=== PATIENT | male | born 1955 | race Caucasian/White ===

== ENCOUNTER 2023-09-03 13:33 | Emergency (ER) | payer MEDICARE, MEDICAID, SELFPAY ==
[2023-09-03 13:55] VITALS: BP 177/74; PULSE 92; RESP 16; TEMP 37; O2SAT 96; BMI 28.7
--- NOTE | 2023-09-03 14:15 | ED_ITS ---
HPI - Recheck/Abnormal Lab/Rx <Miguelina Diaz PA-C - Last Filed: 09/03/23 14:39> General Chief Complaint: Recheck/Abnormal Lab/Rx Stated Complaint: per pt bacterial infection, finger swelling Time Seen by Provider: 09/03/23 13:38 Source: patient Mode of arrival: Family Vehicle History of Present Illness HPI narrative: This is a 68-year-old male presenting with concern for wanting a recheck of his finger. Patient states about 8 days ago he sustained a burn when he was cooking to the top of his right hand and index finger. He states that there was redness and there were some blisters that formed. He did not do anything initially to treat it but had quite a bit of swelling in that finger and reduced range of motion so he went to the walk-in clinic in would be 2 days ago where he was given a shot of intramuscular antibiotic and placed on Bactrim. Patient states he did not start the Bactrim until yesterday, he just took the 3rd dose this morning. He came in today for further evaluation/rechecked to make sure everything looks okay and he is concerned that it is still swollen and somewhat painful. He states that his range of motion in the swelling have gone down significantly since he had the antibiotic shot 2 days ago. Overall he says it is looking much better. He denies sustaining any other injury to this hand or fingers recently including puncture wound. He has never had something like this before in his finger. He denies any fevers, chills, nausea, vomiting or any other symptoms says he has been in his usual state of health. Related Data Allergies Allergy/AdvReac Type Severity Reaction Status Date / Time No Known Drug Allergies Allergy Verified 09/03/23 14:31 Review of Systems <Miguelina Diaz PA-C - Last Filed: 09/03/23 14:39> Review of Systems Narrative: See HPI Exam <Miguelina Diaz PA-C - Last Filed: 09/03/23 14:39> Narrative Exam Narrative: GENERAL: 68 year old patient appears stated age. Well-developed patient, in mild distress. HEAD: Atraumatic. Normocephalic. EYES: Pupils equal round and reactive. Extraocular motions intact. No scleral icterus. No injection or drainage. ENT: Nose without bleeding, purulent drainage. Throat without erythema, tonsillar hypertrophy or exudate. Airway patent. NECK: Trachea midline. Non tender CARDIOVASCULAR: Regular rate and rhythm without murmurs, gallops, or rubs. RESPIRATORY: Slightly coarse. Breath sounds equal bilaterally. No wheezes, rales, or rhonchi. EXTREMITIES: The right index finger has moderate generalized swelling throughout the entire digit, there is mild erythema and mild generalized tenderness with no specific area of fluctuance or induration. There are no contractures present. Exam appears consistent with a healing possibly infected second-degree burn. No abscess or visible broken skin, there is some dried flaking skin on the dorsum of the hand at the base of the finger at the location patient states he had a blister. There is an area approximately half a cm in diameter at the patient's palmar aspect of the D IP of the affected hand index finger that is slightly pale appearing as compared to the remainder of the digits. Patient believes this was a blister spot from the burn as well. There is no streaking up the hand or into the wrist or arm. Range of motion is some what reduced 2nd to inflammation/swelling No edema or joint tenderness. Patient has no tenderness with palpation over the flexor tendons of the palm proximal to the index finger. NEURO: AOx3. SKIN: No rash or erythema of visible areas Initial Vital Signs Initial Vital Signs: Vital Signs Temperature 98.6 F 09/03/23 13:55 Pulse Rate 92 H 09/03/23 13:55 Respiratory Rate 16 09/03/23 13:55 Blood Pressure 177/74 H 09/03/23 13:55 Pulse Oximetry 96 09/03/23 13:55 Oxygen Delivery Method Room Air 09/03/23 13:55 <Ghassan Hopson DO - Last Filed: 09/03/23 14:58> Initial Vital Signs Initial Vital Signs: Vital Signs Temperature 98.6 F 09/03/23 13:55 Pulse Rate 92 H 09/03/23 13:55 Respiratory Rate 16 09/03/23 13:55 Blood Pressure 177/74 H 09/03/23 13:55 Pulse Oximetry 96 09/03/23 13:55 Oxygen Delivery Method Room Air 09/03/23 13:55 Course <Miguelina Diaz PA-C - Last Filed: 09/03/23 14:39> Orders Ordered: Discontinued Medications Ceftriaxone Sodium (Ceftriaxone 2,000 Mg Vial) 1,000 mg IM NOW ONE Stop: 09/03/23 14:15 Last Admin: 09/03/23 14:28 Dose: 1,000 mg Documented By: CHANDA Lidocaine HCl (Lidocaine 1% (Pf) 5 Ml) 4.2 ml INJ NOW ONE Stop: 09/03/23 14:15 Last Admin: 09/03/23 14:29 Dose: 4.2 ml Documented By: CHANDA Vital Signs Vital signs: Vital Signs - 8 hr 09/03/23 13:55 Temperature 98.6 F Pulse Rate 92 H Respiratory Rate 16 Blood Pressure 177/74 H Pulse Oximetry 96 Oxygen Delivery Method Room Air <Ghassan Hopson DO - Last Filed: 09/03/23 14:58> Orders Ordered: Discontinued Medications Ceftriaxone Sodium (Ceftriaxone 2,000 Mg Vial) 1,000 mg IM NOW ONE Stop: 09/03/23 14:15 Last Admin: 09/03/23 14:28 Dose: 1,000 mg Documented By: CHANDA Lidocaine HCl (Lidocaine 1% (Pf) 5 Ml) 4.2 ml INJ NOW ONE Stop: 09/03/23 14:15 Last Admin: 09/03/23 14:29 Dose: 4.2 ml Documented By: CHANDA Vital Signs Vital signs: Vital Signs - 8 hr 09/03/23 13:55 Temperature 98.6 F Pulse Rate 92 H Respiratory Rate 16 Blood Pressure 177/74 H Pulse Oximetry 96 Oxygen Delivery Method Room Air MDM - Recheck/Abnormal Lab/Rx <Miguelina Diaz PA-C - Last Filed: 09/03/23 14:39> [facility] Narrative Medical decision making narrative: This is a 68-year-old male presenting with concern for re-evaluation after starting antibiotics delayed for a finger infection in the setting of a burn wound 8 days ago. Per patient his range of motion and swelling have actually improved significantly since he had the shot of antibiotics 2 days ago at the walk-in clinic on would be. He did delay start of his Bactrim and did not start it until yesterday, he does not feel he has worsened simply wants further evaluation to make sure things look okay. It was prescribed 7 day course of Bactrim until the 3rd dose today just prior to come into the emergency department here. His vitals history and exam do not suggest sepsis. Labs were not obtained. He does have generalized swelling of the affected digit with reduced range of motion 2nd to swelling and mild pain. He has given a 2nd dose of ceftriaxone IM here today in the emergency department advised to continue the Bactrim as prescribed for the full 7 day course. Monitor for signs of worsening infection and seek re-evaluation if he does not see the swelling start to improve in the next few days. Discharge Plan Departure Patient Disposition: Home Clinical Impression: Encounter for wound re-check, Encounter for recheck of burn Activity Restrictions/Additional Instructions: *You have been diagnosed with [burn, subsequent infection] *What to do: *Please continue to take your regular medications as directed. [ ] New medication prescriptions sent to your pharmacy: [ ] [ ] New medication written as a paper prescription [ x] No new medications given *Please follow up with your primary care provider in 2-3 days, call for an appointment. Let them know you were seen in the Emergency Department and that we ask that you be seen in follow up. We will electronically transmit a record of today's note if your PCP is in our system. You were already seen 2 days ago at a walk-in clinic and given a shot of antibiotic. It sounds like there was a little bit of a delay in you starting her oral antibiotics and you have only had a couple doses of this. You reported that your range of motion and swelling have improved since these were started and since he got the shot. Given he had a delay in starting the oral antibiotics I did get you another shot of intramuscular antibiotics today in the emergency department I do think that your exam is consistent with a localized infection likely 2nd to the burn wound that you sustained 8 days ago. Keep monitoring her symptoms and if you do not have improvement of the swelling and decreased pain in the next few days make sure you have this rechecked certainly if it is worsening it is important to get it rechecked sooner. I recommend he follow up with your primary care provider for a wound recheck. Continue taking the antibiotics as prescribed for the full 7 day course. *If you do not have a primary care provider please contact the [facility] Resource line at [phone]. They will ask some questions about your medical history and help get you set up with a doctor in the community. *Return to Emergency Department if you should have any new, worsening or concerning symptoms, such as [fever greater than 101 F, shaking chills, worsening pain, persistent vomiting or other bothersome symptoms] Stand Alone Forms: Patient Portal/API ED Sign-out <Ghassan Hopson, DO - Last Filed: 09/03/23 14:58> Cosign ED Attending Cosignature Attestation: Dr Hopson Co-Sign Statement: I was available for consultation during this patient's emergency department visit. This chart is signed by myself for administrative purposes only. I did not have direct contact with this patient during this visit. They were seen independently by the [facility].
[2023-09-03] MEDS: cefTRIAXone 2,000 MG VIAL 1000 MG IM (14:28)
[2023-09-03] MEDS: LIDOCAINE 1% (PF) 5 ML 4.2 ML INJ (14:29)
== END 2023-09-03 14:50 | disposition home or self-care (01) ==
PROVIDERS: Emergency Provider Student in an Organized Health Care Education/Training Program
DX: T23.021A Burn of unspecified degree of single right finger (nail) except thumb, initial encounter (principal); T23.061A Burn of unspecified degree of back of right hand, initial encounter; X08.8XXA Exposure to other specified smoke, fire and flames, initial encounter; Y93.G3 Activity, cooking and baking
CPT/HCPCS: 96372; 99283; J0696

== ENCOUNTER 2023-12-22 10:41 | Emergency (ER) | payer MEDICARE, MEDICAID, SELFPAY ==
[2023-12-22] VITALS (40 sets, daily range): BP systolic 106–185; BP diastolic 59–97; PULSE 92–120; RESP 20–40; TEMP 27.1–36.7; O2SAT 89–100; BMI 28.7
--- NOTE | 2023-12-22 10:42 | ED_ITS ---
HPI - SOB/Dyspnea General Chief Complaint: Shortness of Breath/Dyspnea Stated Complaint: Hard time Breathing Time Seen by Provider: 12/22/23 10:42 Source: patient, RN notes reviewed and old records reviewed Mode of arrival: Ambulatory Limitations: no limitations History of Present Illness HPI Narrative: 68-year-old male history of tobacco abuse, anxiety, hypertension who presents with complaint of difficulty breathing. Patient states he has had trouble for the past week, was seen at an outpatient office or urgent care had a chest x-ray was told he had pneumonia and started on antibiotic, does not recall the name, prednisone and was given inhaler. States he hit inhaler has been helpful but does not last very long. He has had increasing shortness of breath feeling more and more anxious because of it. Denies any fevers, denies any nasal congestion, denies any chest congestion. Denies any chest pain. Denies any nausea or vomiting, no GI or urinary symptoms. He has noted increased swelling in bilateral lower extremities. Patient states home medications include propranolol and a medication for anxiety. Denies any drug allergies. Quit smoking recently, states occasional alcohol, denies recreational drugs. Has not ever been hospitalized for his breathing. Related Data Home Medications Medication Instructions Recorded Confirmed albuterol sulfate 90 mcg/actuation 2 puff inhalation 4XD PRN Cough 12/22/23 12/22/23 aerosol inhaler azithromycin 250 mg tablet 250 mg PO DAILY 12/22/23 12/22/23 benzonatate 100 mg capsule 100 mg PO 3XD PRN cough 12/22/23 12/22/23 Allergies Allergy/AdvReac Type Severity Reaction Status Date / Time No Known Drug Allergies Allergy Verified 09/03/23 14:31 Review of Systems Review of Systems ROS Unobtainable: All systems reviewed & are unremarkable except as noted in HPI and below Patient History Social History Smoking Status: Former smoker Exam Narrative Exam Narrative: GENERAL: Alert and oriented x three, male in moderate distress HEENT: Head normocephalic, atraumatic, EOMI, nasal congestion, pupils reactive, face symmetric, moist mucous membranes NECK: Supple, full range of motion CARDIOVASCULAR: Tachycardic but regular rate and rhythm without murmurs, rubs or gallops. RESPIRATORY: Breath sounds decreased bilaterally, mild wheezes bilaterally, no crackles or rhonchi, positive for tachypnea speaks in 2-3 words. ABDOMEN: Soft, nontender. Normoactive bowel sounds all 4 quadrants. No guarding or rebound, rigidity, no mass : No CVA tenderness EXTREMITIES: Normal range of motion, 2+ bilateral lower extremity edema. Neurovascularly intact NEUROLOGICAL: Cranial nerves II through XII grossly intact. Moving all extremities SKIN: Warm, dry, no petechiae, no rashes or lesions. Initial Vital Signs Initial Vital Signs: Vital Signs Temperature 98.1 F 12/22/23 10:45 Pulse Rate 120 H 12/22/23 10:45 Respiratory Rate 32 H 12/22/23 10:45 Blood Pressure 139/78 12/22/23 10:45 Pulse Oximetry 89 L 12/22/23 10:45 Oxygen Delivery Method Room Air 12/22/23 10:45 Course Orders Ordered: ED Orders 12/22/23 10:49 XR chest 1V Stat EKG-12 Lead Stat Measure peak expiratory flow ONCE RT Consult Eval and Treat NOW 12/22/23 11:06 CT angio chest PE protocol Stat 12/22/23 11:08 Complete Blood Count AUTO DIFF Stat Comprehensive Metabolic Panel Stat Lactate (Lactic Acid) Stat NT-proBNP (BNP-Adult 18+) Stat PTT Partial Thromboplastin Earnest Q6H Procalcitonin Stat Prothrombin Time INR Stat Respiratory Panel (Film Array) Stat Troponin I Stat 12/22/23 11:35 Blood Culture Stat 12/22/23 12:20 Urinalysis and Microscopic Stat 12/22/23 12:58 Trop I [Troponin I] Stat 12/22/23 13:04 EKG-12 Lead Routine Discontinued Medications Albuterol (Albuterol 2.5 Mg/3 Ml Neb (Adult)) 10 mg INH NOW ONE Stop: 12/22/23 11:06 Last Admin: 12/22/23 11:15 Dose: 10 mg Documented By: DS Albuterol/Ipratropium (Albuterol/Ipratropium 3 Ml Ampul) 3 ml INH NOW ONE Stop: 12/22/23 10:58 Last Admin: 12/22/23 11:00 Dose: 3 ml Documented By: DS Aspirin (Aspirin 81 Mg Chew Tab) 324 mg PO NOW ONE Stop: 12/22/23 16:04 Last Admin: 12/22/23 16:20 Dose: Not Given Documented By: CTS Aspirin (Aspirin 300 Mg Supp) 300 mg TN NOW ONE Stop: 12/22/23 16:31 Last Admin: 12/22/23 16:26 Dose: 300 mg Documented By: ANGELINA Azithromycin (Azithromycin 250 Mg Tablet) 500 mg PO NOW ONE Stop: 12/22/23 11:07 Last Admin: 12/22/23 12:08 Dose: 500 mg Documented By: JEANIE Furosemide (Furosemide 40 Mg/4 Ml Vial) 40 mg IV NOW ONE Stop: 12/22/23 10:52 Last Admin: 12/22/23 11:03 Dose: 40 mg Documented By: MIGUEL Heparin Sodium (Porcine) (Heparin 5,000 Unit/Ml Vial) 5,000 unit IV NOW ONE Stop: 12/22/23 12:15 Last Admin: 12/22/23 12:38 Dose: 5,000 unit Documented By: JEANIE Ceftriaxone Sodium 1,000 mg/ (Sodium Chloride) 100 mls @ 200 mls/hr IV NOW ONE Stop: 12/22/23 11:07 Last Infusion: 12/22/23 12:49 Dose: Infused Documented By: Admin: 12/22/23 12:09 Dose: 200 mls/hr Documented By: JEANIE Heparin Sodium/Dextrose (Heparin Drip) 25,000 unit in 500 mls @ 21.772 mls/hr IV CONT FREDIS; Protocol Last Admin: 12/22/23 12:38 Dose: 12 units/kg/hr, 21.772 mls/hr Documented By: JEANIE Co-signed By: CHERELLE Lorazepam (Lorazepam 0.5 Mg Tablet) 1 mg PO NOW ONE Stop: 12/22/23 12:13 Last Admin: 12/22/23 12:17 Dose: 1 mg Documented By: ANGELINA Methylprednisolone (Methylprednisolone 125 Mg/2 Ml Vial) 125 mg IV NOW ONE Stop: 12/22/23 10:50 Last Admin: 12/22/23 11:04 Dose: 125 mg Documented By: MIGUEL Vital Signs Vital signs: Vital Signs - 8 hr 12/22/23 10:45 12/22/23 11:02 12/22/23 11:10 Temperature 98.1 F Pulse Rate 120 H 111 H 109 H Respiratory Rate 32 H 29 H 27 H Blood Pressure 139/78 Pulse Oximetry 89 L 90 L 97 Oxygen Delivery Method Room Air Oxygen Flow Rate Fraction of Inspired Oxygen 12/22/23 11:10 10/21/24 11:16 12/22/23 11:20 Temperature Pulse Rate 112 H 111 H Respiratory Rate 28 H 26 H Blood Pressure 142/81 H Pulse Oximetry 95 98 Oxygen Delivery Method Nasal Cannula Oxygen Flow Rate 2.5 Fraction of Inspired Oxygen 12/22/23 11:20 12/22/23 11:30 12/22/23 12:00 Temperature Pulse Rate 116 H 113 H Respiratory Rate 30 H 37 H Blood Pressure 145/86 H Pulse Oximetry 90 L 97 Oxygen Delivery Method Oxygen Flow Rate Fraction of Inspired Oxygen 12/22/23 12:10 12/22/23 12:10 12/22/23 12:20 Temperature Pulse Rate 108 H Respiratory Rate 30 H Blood Pressure 106/60 131/61 Pulse Oximetry 97 Oxygen Delivery Method Oxygen Flow Rate Fraction of Inspired Oxygen 12/22/23 12:20 12/22/23 12:30 12/22/23 12:31 Temperature Pulse Rate 111 H 110 H 115 H Respiratory Rate 32 H 32 H 36 H Blood Pressure Pulse Oximetry 97 97 95 Oxygen Delivery Method Oxygen Flow Rate Fraction of Inspired Oxygen 12/22/23 12:31 12/22/23 12:40 12/22/23 12:40 Temperature Pulse Rate 110 H Respiratory Rate 33 H Blood Pressure 135/69 117/66 Pulse Oximetry 96 Oxygen Delivery Method Nasal Cannula Oxygen Flow Rate 2 Fraction of Inspired Oxygen 12/22/23 13:00 12/22/23 13:00 12/22/23 13:06 Temperature Pulse Rate 104 H Respiratory Rate 26 H Blood Pressure 121/68 141/77 H Pulse Oximetry 97 Oxygen Delivery Method BiPAP Oxygen Flow Rate Fraction of Inspired Oxygen 0.35 12/22/23 13:10 12/22/23 13:10 12/22/23 13:20 Temperature Pulse Rate 109 H Respiratory Rate 26 H Blood Pressure 141/77 H 136/76 Pulse Oximetry 96 Oxygen Delivery Method Oxygen Flow Rate Fraction of Inspired Oxygen 12/22/23 13:20 12/22/23 13:30 12/22/23 13:30 Temperature Pulse Rate 105 H 104 H Respiratory Rate 24 27 H Blood Pressure 127/72 Pulse Oximetry 99 98 Oxygen Delivery Method Oxygen Flow Rate Fraction of Inspired Oxygen 12/22/23 13:40 12/22/23 13:40 12/22/23 13:51 Temperature Pulse Rate 115 H Respiratory Rate 32 H Blood Pressure 185/97 H 127/79 Pulse Oximetry 96 Oxygen Delivery Method Oxygen Flow Rate Fraction of Inspired Oxygen 12/22/23 13:51 12/22/23 14:00 12/22/23 14:00 Temperature Pulse Rate 101 H 100 H Respiratory Rate 21 22 Blood Pressure 139/81 Pulse Oximetry 100 99 Oxygen Delivery Method Oxygen Flow Rate Fraction of Inspired Oxygen 12/22/23 14:10 12/22/23 14:10 12/22/23 14:20 Temperature Pulse Rate 102 H Respiratory Rate 24 Blood Pressure 133/76 121/63 Pulse Oximetry Oxygen Delivery Method Oxygen Flow Rate Fraction of Inspired Oxygen 12/22/23 14:20 12/22/23 14:30 12/22/23 14:30 Temperature Pulse Rate 101 H 101 H Respiratory Rate 26 H 27 H Blood Pressure 121/71 Pulse Oximetry 97 100 Oxygen Delivery Method Oxygen Flow Rate Fraction of Inspired Oxygen 12/22/23 14:40 12/22/23 14:40 12/22/23 14:50 Temperature Pulse Rate 99 H Respiratory Rate 26 H Blood Pressure 118/71 120/72 Pulse Oximetry 99 Oxygen Delivery Method BiPAP Oxygen Flow Rate Fraction of Inspired Oxygen 12/22/23 14:50 12/22/23 14:53 12/22/23 15:00 Temperature Pulse Rate 98 H 102 H Respiratory Rate 26 H 30 H Blood Pressure Pulse Oximetry 100 100 Oxygen Delivery Method Oxygen Flow Rate Fraction of Inspired Oxygen 0.35 12/22/23 15:01 12/22/23 15:01 12/22/23 15:10 Temperature Pulse Rate 110 H Respiratory Rate 40 H Blood Pressure 127/59 L 128/73 Pulse Oximetry 100 Oxygen Delivery Method BiPAP Oxygen Flow Rate Fraction of Inspired Oxygen 12/22/23 15:10 12/22/23 15:20 12/22/23 15:20 Temperature Pulse Rate 93 H 95 H Respiratory Rate 21 22 Blood Pressure 129/73 Pulse Oximetry 100 100 Oxygen Delivery Method Oxygen Flow Rate Fraction of Inspired Oxygen 12/22/23 15:30 12/22/23 15:30 12/22/23 15:40 Temperature Pulse Rate 96 H 96 H Respiratory Rate 23 22 Blood Pressure 122/69 Pulse Oximetry 100 100 Oxygen Delivery Method Oxygen Flow Rate Fraction of Inspired Oxygen 12/22/23 15:40 12/22/23 15:50 12/22/23 15:50 Temperature Pulse Rate 97 H Respiratory Rate 24 Blood Pressure 126/72 115/68 Pulse Oximetry 100 Oxygen Delivery Method Oxygen Flow Rate Fraction of Inspired Oxygen 12/22/23 16:00 12/22/23 16:00 12/22/23 16:10 Temperature Pulse Rate 97 H Respiratory Rate 25 H Blood Pressure 113/67 117/68 Pulse Oximetry 100 Oxygen Delivery Method Oxygen Flow Rate Fraction of Inspired Oxygen 12/22/23 16:10 12/22/23 16:20 12/22/23 16:20 Temperature Pulse Rate 96 H 100 H Respiratory Rate 25 H 23 Blood Pressure 121/69 Pulse Oximetry 100 100 Oxygen Delivery Method Oxygen Flow Rate Fraction of Inspired Oxygen 12/22/23 16:30 12/22/23 16:30 12/22/23 16:40 Temperature Pulse Rate 105 H 96 H Respiratory Rate 31 H 24 Blood Pressure 134/67 Pulse Oximetry 99 97 Oxygen Delivery Method Oxygen Flow Rate Fraction of Inspired Oxygen 12/22/23 16:40 12/22/23 16:50 12/22/23 16:50 Temperature Pulse Rate 92 H Respiratory Rate 21 Blood Pressure 133/71 119/66 Pulse Oximetry 97 Oxygen Delivery Method Oxygen Flow Rate Fraction of Inspired Oxygen 12/22/23 17:00 12/22/23 17:00 Temperature Pulse Rate 95 H Respiratory Rate 26 H Blood Pressure 117/66 Pulse Oximetry 97 Oxygen Delivery Method Oxygen Flow Rate Fraction of Inspired Oxygen MDM - SOB/Dyspnea Lab Data 12/22/23 11:08 12/22/23 11:08 Labs: Lab Results 12/22/23 12/22/23 12/22/23 Range/Units 11:08 12:20 12:58 WBC 9.8 (4.5-11.0) X10^3/uL RBC 3.71 L (4.5-5.9) X10^6/uL Hgb 11.8 L (13.5-17.5) g/dL Hct 35.4 L (41-53) % MCV 95.2 (80-100) fL MCH 31.8 (26-34) PG MCHC 33.3 (30-36) % RDW 13.9 (11.6-14.8) % Plt Count 474 H (150-400) X10^3/uL Neut % (Auto) 82.9 H (50-75) % Lymph % (Auto) 9.1 L (25-40) % [place] % (Auto) 6.4 (3-14) % Eos % (Auto) 1.1 L (2-4) % Baso % (Auto) 0.5 (0-2) % Neut # (Auto) 8100 H (2891-4884) /uL Lymph # (Auto) 900 L (5947-3668) /uL [place] # (Auto) 600 (0-900) /uL Eos # (Auto) 100 (0-450) /uL Baso # (Auto) 0 (0-100) /uL PT 16.3 H (9.4-12.5) SECONDS INR 1.4 H (0.9-1.3) APTT 37 H (25.1-36.5) SECONDS Sodium 130 L (137-145) mmol/L Potassium 3.6 (3.4-5.1) mmol/L Chloride 100 (98-107) mmol/L Carbon Dioxide 19 L (22-32) mmol/L BUN 13 (9-20) mg/dL Creatinine 0.82 (0.66-1.25) mg/dL Estimated GFR > 60 (>60) mL/min BUN/Creatinine Ratio 15.9 (6-22) Glucose 349 H (80-110) mg/dL Lactate 2.4 H 2.4 H (0.7-2.1) mmol/L Calcium 8.2 L (8.4-10.2) mg/dL Total Bilirubin 1.1 (0.2-1.3) mg/dL AST 25 (17-59) IU/L ALT 21 (<50) IU/L Alkaline Phosphatase 84 (38-126) U/L Troponin I 0.408 H* 0.367 H* (0.01-0.034) ng/mL NT-Pro-B Natriuret Pep 7980 H (<125) pg/mL Total Protein 6.4 (6.3-8.2) g/dL Albumin 3.2 L (3.5-5.0) g/dL Globulin 3.2 (1.7-4.1) g/dL Albumin/Globulin Ratio 1.0 (1.0-2.8) Procalcitonin 0.060 (<0.5) ng/mL Urine Color Yellow Urine Appearance Clear Urine pH 5.0 (4.5-8.0) Ur Specific [place] 1.010 (1.000-1.035) Urine Protein Negative (Negative) Urine Glucose (UA) 3+ H (Negative) g/dL Urine Ketones Negative (NEGATIVE) Urine Occult Blood Trace-intact (Negative) Urine Nitrate Negative (Negative) Urine Bilirubin Negative (NEGATIVE) Urine Urobilinogen 1.0 (0.2) E.U./dL Ur Leukocyte Esterase Negative (NEGATIVE) Urine RBC 0-1/hpf (0-5/HPF) Urine WBC None seen (0-5/HPF) Ur Squamous Epith Cells None seen (0-5/HPF) Urine Bacteria None seen (None) Ur Culture Indicated? Cult not indicated Vol Urine Centrifuged 10ml (spun) Chlamy pneumoniae PCR Not detected (Not Detect) Adenovirus (PCR) Not detected (Not Detect) B. pertussis DNA (PCR) Not detected (Not Detect) B.parapertussis DNA PCR Not detected (Not Detecte) Coronavirus OC43 (PCR) Not detected (Not Detect) Coronavirus HKU1 (PCR) Not detected (Not Detect) Coronavirus 229E (PCR) Not detected (Not Detect) SARS-CoV-2 (PCR) Not detected (Not Detecte) Coronavirus NL63 (PCR) Not detected (Not Detect) Human Metapneumovir PCR Not detected (Not Detect) Influenza Type A (PCR) Not detected (Not Detect) Influenza Type B (PCR) Not detected (Not Detect) M. pneumoniae (PCR) Not detected (Not Detect) Parainfluenza 1 (PCR) Not detected (Not Detect) Parainfluenza 2 (PCR) Not detected (Not Detect) Parainfluenza 3 (PCR) Not detected (Not Detect) Parainfluenza 4 (PCR) Not detected (Not Detect) RSV (PCR) Not detected (Not Detect) Entero/Rhino (PCR) Not detected (Not Detect) Imaging Data Chest x-ray: Radiologist's Impression: [address] [address] XRay Report Signed Patient: Tani Wayne MR#: [id number] : 1955 Acct:[id number] Age/Sex: 68 / M Date of Service: 12/22/23 Loc: ED Accession Number: [id number] Procedure: XR chest 1V Ordering Provider: Corrie Lozoya D.O. PROCEDURE: XR CHEST 1V INDICATIONS: Shortness of breath TECHNIQUE: One view of the chest was acquired. COMPARISON: None. FINDINGS: Surgical changes and devices: None. Lungs and pleura: Bilateral pulmonary opacities with the largest consolidative opacity overlying the left mid lung. There is blunting of the costophrenic angles bilaterally. Mediastinum: Mediastinal contours appear normal. Heart size is normal. Bones and chest wall: No suspicious bony lesions. Overlying soft tissues appear unremarkable. IMPRESSION: Bilateral opacities with canal largest consolidative opacity overlying the left mid lung. Overall findings are most suggestive of pneumonia with minimal effusions. Recommend interval follow-up to document resolution. Dictated by: Denita Hill M.D. on 12/22/2023 at 11:34 Approved by: Denita Hill M.D. on 12/22/2023 at 11:35 CT scan - chest: Radiologist's Impression: [place] [address] CT Scan Report Signed Patient: Tani Wayne MR#: [id number] : 1955 Acct:[id number] Age/Sex: 68 / M Date of Service: 12/22/23 Loc: ED Accession Number: [id number] Procedure: CT angio chest PE protocol Ordering Provider: Corrie Lozoya D.O. PROCEDURE: CT ANGIO CHEST PE PROTOCOL INDICATIONS: sob, swelling, ? pna, pe vs other TECHNIQUE: After the administration of intravenous contrast, 2 mm thick sections acquired from the pulmonary apices to the posterior costophrenic angles. 3-dimensional maximum intensity projection (MIP) coronal and sagittal reformats were then acquired through the thorax. For radiation dose reduction, the following was used: automated exposure control, adjustment of mA and/or kV according to patient size. COMPARISON: None. FINDINGS: Image quality: Diagnostic. Pulmonary arteries: Pulmonary arteries are normal in size, and demonstrate no intraluminal filling defects to suggest central pulmonary embolism. Lower Neck: No enlarged lymph nodes. Thyroid: No thyroid nodules which require sonographic follow up, per consensus guidelines. Axillae: No enlarged lymph nodes. Chest Wall: Unremarkable. Bones: Unremarkable. Lungs and Pleura: No pneumothorax or pleural effusions. There is underlying pulmonary interstitial fibrosis with bilateral honeycombing, left greater than right. There are ground-glass opacities and patchy bilateral airspace consolidation, left greater than right, consistent with asymmetric pulmonary edema. Moderately large bilateral pleural effusions. Heart: Heart size is normal. No pericardial effusion. Severe coronary artery calcifications. Reflux of contrast into the hepatic veins suggests a degree of right heart failure. Thoracic Vessels: No aortic aneurysm. Mediastinum and Lila: No enlarged lymph nodes. Esophagus: No wall thickening. No hiatal hernia. Upper Abdomen: Visualized upper abdomen solid organs and bowel loops appear normal. IMPRESSION: 1. No acute pulmonary emboli. 2. Underlying chronic interstitial pulmonary fibrosis. 3. Congestive heart failure exacerbation. Dictated by: Praful Dempsey M.D. on 12/22/2023 at 12:23 Approved by: Praful Dempsey M.D. on 12/22/2023 at 12:24 ECG Data Attestation: I personally reviewed and interpreted this ECG as follows: Interpretation: Sinus tach rate of 112 TN 134 QRS 88 QTC of 334 sinus tach rightward axis patient does have some motion artifact had difficulty holding still but no signs of ST elevation. Repeat EKG sinus tach rate of 109 TN 154 QRS 84 QTC 463. MDM Narrative Medical decision making narrative: 68-year-old known history of chronic tobacco use who presents with complaint of increasing shortness of breath states he was diagnosed with pneumonia in the last week at an outside facility given an oral antibiotic, prednisone and inhaler. Has stated that inhaler has been helpful but symptoms have continued to worsen has also noticed some increased swelling in lower extremity states no known history of CHF is not normally on any sort of diuretics or water pills. Patient notes he is DNR/DNI he was okay with interventions to intubation but does not wish to be intubated or have CPR. Patient has decreased sounds bilaterally on exam, hypoxic, tachycardic on arrival speaking in 2-3 word sentences, CHF, pneumonia, COPD exacerbation from chronic tobacco use are all within the differential. Labs show white count 9.8 hemoglobin 11.8 platelets of 474, INR is 1.4 sodium is 130 potassium 3.6 chloride 100 CO2 is 19 with a BUN of 13 creatinine 0.82 glucose is 349 lactate is 2.4 with a calcium of 8.2 bilirubin, AST ALT and alk- phos normal, troponin is 0.408, BNP 7980. Procalcitonin is negative EKG sinus tach rate of 112, TN 134 QRS 88 QTC 334, no acute ST elevation there is some motion artifact. Chest x-ray bilateral opacities with consolidation largest overlying the left mid lung blunting costophrenic angles bilaterally mediastinal contours appear normal heights is normal no suspicious bony lesions overlying soft tissue appears unremarkable. Respiratory panel is negative. Patient received DuoNeb, Solu-Medrol and Lasix. On recheck patient has some improved aeration but still quite short of breath. Received 10 mg albuterol in addition and while evaluated during this appears to be much more comfortable. Still requiring O2. Chest x-ray shows patchy infiltrates throughout but most obvious in the left concerning for bilateral pneumonia and patient was started on IV antibiotics including Rocephin azithromycin CT angio of the chest shows no acute PE, underlying pulmonary interstitial fibrosis with bilateral honeycombing [id number]-right ground-glass opacities and patchy bilateral airspace consolidation left greater than right consistent with asymmetric pulmonary edema moderate large bilateral pleural effusions heart size normal no pericardial effusion severe coronary artery calcification reflux of contrast in the hepatic veins suggest a degree of right heart failure. Patient was started on heparin secondary to elevated troponin, maybe demand ischemia no acute ST elevation but patient does not appear to have for heart failure on top of NSTEMI. Patient's work of breathing has not improved but still has some tachypnea, requiring oxygen still slightly tachycardic we will trial patient with BiPAP. He has had 1.4 L of urine output after Lasix. Spoke with Cardiology, Dr. Sheikh, discussed findings from today, positive troponin elevated BNP, chest x-ray initially appeared to be like multifocal pneumonia but CT shows no PE but does show asymmetric pulmonary edema large bilateral pleural effusions there is some reflux of contrast suggesting a degree of right heart failure. After discussion felt patient would probably benefit from transfer as he may end up requiring a heart catheterization. Calls out to multiple facilities. No availability at [facility], no [facility] in [facility]. Spoke with the cardroom drawing runner at [facility], Dr. Rogers accepts for transfer to ICU. Accepts for transfer reviewed findings, HPI and history, workup so far. We will add aspirin 324 mg. Currently on bipap patient has been tolerating well. Does seem to be assisting with a work of breathing. Patient is agreeable to transfer, DNR/DNI paperwork was completed prior to transfer. Critical Care Time Critical Care Time Critical Care Time: Yes Total Critical Care Time: 35 Attestation: The high probability of a clinically significant, sudden or life threatening deterioration of the cardiac/pulmonary system(s) required my full and direct attention, intervention and personal management. The aggregate critical care time was [--] minutes. This time is in addition to time spent performing reported procedures but includes the following: [x] Data Review and interpretation [x] Patient assessment and monitoring of vital signs [x] Documentation [x] Medication orders and management Discharge Plan Departure Patient Disposition: [facility] Clinical Impression: Acute CHF (congestive heart failure), Acute hypoxic respiratory failure, Hyponatremia, Acute non-ST elevation myocardial infarction (NSTEMI) Prescriptions: No Action azithromycin 250 mg tablet 250 mg PO DAILY benzonatate 100 mg capsule 100 mg PO 3XD PRN (Reason: cough) albuterol sulfate 90 mcg/actuation HFA aerosol inhaler 2 puff INHALATION 4XD PRN (Reason: Cough)
--- NOTE | 2023-12-22 10:49 | DI.RAD.S_ITS ---
PROCEDURE: XR CHEST 1V INDICATIONS: Shortness of breath TECHNIQUE: One view of the chest was acquired. COMPARISON: None. FINDINGS: Surgical changes and devices: None. Lungs and pleura: Bilateral pulmonary opacities with the largest consolidative opacity overlying the left mid lung. There is blunting of the costophrenic angles bilaterally. Mediastinum: Mediastinal contours appear normal. Heart size is normal. Bones and chest wall: No suspicious bony lesions. Overlying soft tissues appear unremarkable. IMPRESSION: Bilateral opacities with canal largest consolidative opacity overlying the left mid lung. Overall findings are most suggestive of pneumonia with minimal effusions. Recommend interval follow-up to document resolution. Dictated by: Denita Hill M.D. on 12/22/2023 at 11:34 Approved by: Denita Hill M.D. on 12/22/2023 at 11:35
[2023-12-22] MEDS: ALBUTEROL/IPRATROPIUM 3 ML AMPUL INH (11:00)
--- NOTE | 2023-12-22 11:00 | EKG_ITS ---
[address] [address] Test Date: 2023-12-22 Pat Name: Tani Wayne Department: 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
[2023-12-22] MEDS: FUROSEMIDE 40 MG/4 ML VIAL IV (11:03)
[2023-12-22] MEDS: methylPREDNISolone 125 MG/2 ML VIAL IV (11:04)
--- NOTE | 2023-12-22 11:06 | DI.CT.S_ITS ---
PROCEDURE: CT ANGIO CHEST PE PROTOCOL INDICATIONS: sob, swelling, ? pna, pe vs other TECHNIQUE: After the administration of intravenous contrast, 2 mm thick sections acquired from the pulmonary apices to the posterior costophrenic angles. 3-dimensional maximum intensity projection (MIP) coronal and sagittal reformats were then acquired through the thorax. For radiation dose reduction, the following was used: automated exposure control, adjustment of mA and/or kV according to patient size. COMPARISON: None. FINDINGS: Image quality: Diagnostic. Pulmonary arteries: Pulmonary arteries are normal in size, and demonstrate no intraluminal filling defects to suggest central pulmonary embolism. Lower Neck: No enlarged lymph nodes. Thyroid: No thyroid nodules which require sonographic follow up, per consensus guidelines. Axillae: No enlarged lymph nodes. Chest Wall: Unremarkable. Bones: Unremarkable. Lungs and Pleura: No pneumothorax or pleural effusions. There is underlying pulmonary interstitial fibrosis with bilateral honeycombing, left greater than right. There are ground-glass opacities and patchy bilateral airspace consolidation, left greater than right, consistent with asymmetric pulmonary edema. Moderately large bilateral pleural effusions. Heart: Heart size is normal. No pericardial effusion. Severe coronary artery calcifications. Reflux of contrast into the hepatic veins suggests a degree of right heart failure. Thoracic Vessels: No aortic aneurysm. Mediastinum and Lila: No enlarged lymph nodes. Esophagus: No wall thickening. No hiatal hernia. Upper Abdomen: Visualized upper abdomen solid organs and bowel loops appear normal. IMPRESSION: 1. No acute pulmonary emboli. 2. Underlying chronic interstitial pulmonary fibrosis. 3. Congestive heart failure exacerbation. Dictated by: Praful Dempsey M.D. on 12/22/2023 at 12:23 Approved by: Praful Dempsey M.D. on 12/22/2023 at 12:24
[2023-12-22] MEDS: ALBUTEROL 2.5 MG/3 ML NEB (ADULT) 10 MG INH (11:15)
[2023-12-22 11:22] LABS: Add Manual Diff / Slide Review NO; Basophils Absolute Auto 0 /uL (0-100); Basophils Percent Auto 0.5 % (0-2); Eosinophils Absolute Auto 100 /uL (0-450); Eosinophils Percent Auto 1.1 % (2-4); Hematocrit 35.4 % (41-53); Hemoglobin 11.8 g/dL (13.5-17.5); Lymphocytes Absolute Auto 900 /uL (1100-4500); Lymphocytes Percent Auto 9.1 % (25-40); Mean Corpuscular HGB Conc 33.3 % (30-36); Mean Corpuscular Hemoglobin 31.8 PG (26-34); Mean Corpuscular Volume 95.2 fL (80-100); Monocytes Absolute Auto 600 /uL (0-900); Monocytes Percent Auto 6.4 % (3-14); Neutrophils Absolute Auto 8100 /uL (1500-7000); Neutrophils Percent Auto 82.9 % (50-75); Platelet Count 474 X10^3/uL (150-400); Red Blood Cell Count 3.71 X10^6/uL (4.5-5.9); Red Cell Distribution Width 13.9 % (11.6-14.8); White Blood Cell Count 9.8 X10^3/uL (4.5-11.0)
[2023-12-22 11:30] LABS: INR 1.4 (0.9-1.3); Prothrombin Time 16.3 SECONDS (9.4-12.5)
[2023-12-22 11:35] LABS: Alanine Aminotransferase 21 IU/L (<50); Albumin 3.2 g/dL (3.5-5.0); Alkaline Phosphatase 84 U/L (38-126); Aspartate Aminotransferase 25 IU/L (17-59); BUN Creatinine Ratio 15.9 (6-22); Bilirubin Total 1.1 mg/dL (0.2-1.3); Blood Urea Nitrogen 13 mg/dL (9-20); Calcium 8.2 mg/dL (8.4-10.2); Carbon Dioxide 19 mmol/L (22-32); Chloride 100 mmol/L (98-107); Estimated Glomerular Filt Rate > 60 mL/min (>60); Globulin 3.2 g/dL (1.7-4.1); Glucose 349 mg/dL (80-110); HEMOLYSIS < 15 (0-50); Lactate (Lactic Acid) 2.4 mmol/L (0.7-2.1); Potassium 3.6 mmol/L (3.4-5.1); Sodium 130 mmol/L (137-145); Total Protein 6.4 g/dL (6.3-8.2)
[2023-12-22 11:46] LABS: NT-proBNP (BNP-Adult 18+) 7980 pg/mL (<125)
[2023-12-22 11:48] LABS: Troponin I 0.408 ng/mL (0.01-0.034)
[2023-12-22] MEDS: AZITHROMYCIN 250 MG TABLET 500 MG PO (12:08)
[2023-12-22 12:09] LABS: Adenovirus Not Detected (Not Detect); B. parapertussis Not Detected (Not Detecte); Bordetella pertussis Not Detected (Not Detect); Chlamydophila pneumoniae Not Detected (Not Detect); Coronavirus 229E Not Detected (Not Detect); Coronavirus HKU1 Not Detected (Not Detect); Coronavirus NL 63 Not Detected (Not Detect); Coronavirus OC43 Not Detected (Not Detect); Human Metapneumovirus Not Detected (Not Detect); Human Rhinovirus/Enterovirus Not Detected (Not Detect); Influenza A Not Detected (Not Detect); Influenza B Not Detected (Not Detect); Mycoplasma pneumoniae Not Detected (Not Detect); Parainfluenza Virus 1 Not Detected (Not Detect); Parainfluenza Virus 2 Not Detected (Not Detect); Parainfluenza Virus 3 Not Detected (Not Detect); Parainfluenza Virus 4 Not Detected (Not Detect); Respiratory Syncytial Virus Not Detected (Not Detect); SARS- CoV-2 Not Detected (Not Detecte)
[2023-12-22] MEDS: cefTRIAXone 1,000 MG in SODIUM CHLORIDE 0.9% 100 ML 200 MG IV (12:09)
[2023-12-22] MEDS: LORazepam 0.5 MG TABLET 1 MG PO (12:17)
[2023-12-22 12:33] LABS: Appearance Urine UA CLEAR; Bilirubin Urine UA NEGATIVE (NEGATIVE); Color Urine UA YELLOW; Glucose Urine UA 3+ g/dL (Negative); Ketones Urine UA NEGATIVE (NEGATIVE); Leukocyte Esterase Urine UA NEGATIVE (NEGATIVE); Nitrite Urine UA NEGATIVE (Negative); Occult Blood Urine UA TRACE-INTACT (Negative); Protein Urine UA NEGATIVE (Negative)
[2023-12-22 12:37] LABS: Urine Volume 10mL (spun)
[2023-12-22] MEDS: HEPARIN DRIP 25,000 UNIT/500 ML IV.SOLN 21.772 UNIT IV (12:38)
[2023-12-22] MEDS: HEPARIN 5,000 UNIT/ML VIAL 5000 UNIT IV (12:38)
[2023-12-22 12:40] LABS: Bacteria Urine None Seen; Culture Indicated Urine Cult Not Indicated; RBC Urine 0-1/HPF (0-5/HPF); Squamous Epithelial Cell Urine None Seen (0-5/HPF); WBC Urine None Seen (0-5/HPF)
[2023-12-22 12:51] LABS: Reflexed Lactate in 2 Hours Y
[2023-12-22 13:00] LABS: PTT Partial Thromboplastin Tim 37 SECONDS (25.1-36.5)
--- NOTE | 2023-12-22 13:04 | EKG_ITS ---
[address] [address] Test Date: 2023-12-22 Pat Name: Tani Wayne Department: Room: Gender: Male Title Department Manager: BERKLEY : 1955 Requested By: Order Number: [id number] Reading MD: Ziggy Erazo Measurements Intervals [place] Rate: 109 P: 54 [place]: 154 QRS: 64 QRSD: 84 T: 73 QT: 344 QTc: 463 Interpretive Statements Sinus tachycardia Low voltage QRS Cannot rule out Anteroseptal infarct , age undetermined Electronically Signed On 12-22-2023 15:28:29 PDT by Ziggy Erazo
[2023-12-22 13:20] LABS: Lactate 2HR (Lactic Acid Rflx) 2.4 mmol/L (0.7-2.1)
[2023-12-22 13:33] LABS: Troponin I 0.367 ng/mL (0.01-0.034)
[2023-12-22] MEDS: ASPIRIN 300 MG SUPP PR (16:26)
--- NOTE | 2024-01-06 11:53 | PC.NURSE ---
late entry- per RN the heparin drip remained infusing at time of transfer to higher level of care.
== END 2023-12-22 17:30 | disposition short-term general hospital (02) ==
PROVIDERS: Emergency Provider Emergency Medicine; Referring Provider Emergency Medicine
DX: I11.0 Hypertensive heart disease with heart failure (principal); I50.9 Heart failure, unspecified; J96.01 Acute respiratory failure with hypoxia; E87.1 Hypo-osmolality and hyponatremia; I21.4 Non-ST elevation (NSTEMI) myocardial infarction; F41.9 Anxiety disorder, unspecified; Z87.891 Personal history of nicotine dependence
CPT/HCPCS: 36415; 71045; 71275; 80053; 81001; 83605; 83880; 84145; 84484; 85025; 85610; 85730; 87040; 87633; 93005; 94640; 96365; 96366; 96367; 96375; 99285; 99291; J0696; J1644; J1940; J2919; J7613; Q9967